=== PATIENT | male | born 1985 | race Caucasian/White ===

== ENCOUNTER 2017-05-09 16:41 | Outpatient (CLI) | payer OTHER ==
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
== END 2017-05-09 16:42 | disposition home or self-care (01) ==
LOC: DI 16:41
PROVIDERS: ATTEND Emergency Medicine
DX: T18.4XXA Foreign body in colon, initial encounter (principal)
CPT/HCPCS: 74022

== ENCOUNTER 2018-09-19 03:53 | Outpatient (CLI) | payer OTHER | END 2018-09-19 03:54 | disposition home or self-care (01) | LOC: LAB 03:53 | DX: Z01.89 Encounter for other specified special examinations (principal) | CPT/HCPCS: 36415 ==

== ENCOUNTER 2018-10-31 00:37 | Emergency (ER) | payer MEDICAID ==
[2018-10-31] MEDS ORDERED: fentaNYL 100 MCG/2 ML VIAL IVP STA (01:00)
--- NOTE | 2018-10-31 01:15 | XRAY Report ---
Reason: chest pain Procedure Date: 10/31/2018 Accession Number: [id number] / [id number] Procedure: XR - Chest 1 View X-Ray CPT Code: 67536 FULL RESULT: EXAM: CHEST RADIOGRAPHY EXAM DATE: 10/31/2018 01:07 AM. CLINICAL HISTORY: Chest pain. COMPARISON: ABDOMEN ACUTE 05/09/2017 4:44 PM. TECHNIQUE: 1 view. FINDINGS: Lungs/Pleura: No dense consolidation. No large effusion or pneumothorax. No pulmonary edema. Mediastinum: Heart and mediastinal contours are unremarkable. Other: None. IMPRESSION: No acute radiographic pulmonary abnormalities. [facility]
[2018-10-31] MEDS ORDERED: IOVERSOL 320 100 ML VIAL IVP ONE ×2 (01:22→01:51)
[2018-10-31 01:24] LABS: BASOPHILS # (AUTO) 0.1 10^3/uL (0.0-0.1); BASOPHILS % (AUTO) 0.6 %; EOSINOPHILS % (AUTO) 0.3 %; HGB - HEMOGLOBIN 13.5 g/dL (14.0-18.0); LYMPHOCYTES % (AUTO) 14.3 %; MEAN CORPUSCULAR HEMOGLOBIN 30.9 pg (27.0-31.0); MEAN CORPUSCULAR HGB CONC 34.5 g/dL (32.0-36.0); MEAN CORPUSCULAR VOLUME 89.6 fL (80.0-94.0); MEAN PLATELET VOLUME 6.4 fL (7.4-11.4); MONOCYTES # (AUTO) 1.2 10^3/uL (0.0-1.0); MONOCYTES % (AUTO) 8.1 %; NEUTROPHILS % (AUTO) 76.7 %; PLT - PLATELET COUNT 215 10^3/uL (130-450); RED BLOOD COUNT 4.38 10^6/uL (4.70-6.10); RED CELL DISTRIBUTION WIDTH 12.1 % (12.0-15.0); WHITE BLOOD COUNT 14.3 x10^3/uL (4.8-10.8)
[2018-10-31 01:32] LABS: CREATININE 1.1 mg/dL (0.6-1.2)
[2018-10-31] MEDS ORDERED: POTASSIUM CHLORIDE 20 MEQ TABLET PO STA (01:36)
[2018-10-31] MEDS ORDERED: TETANUS/DIPHTHERIA/PERTUSSIS 0.5 ML SYRINGE IM ONE (01:53)
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
[2018-10-31] MEDS ORDERED: BUPIVACAINE 0.5%-EPI 1:200000 PF 10 ML VIAL SUBQ STA (02:32)
[2018-10-31] MEDS ORDERED: BACITRACIN OINT TOP STA (04:26)
[2018-10-31 04:27] VITALS: BP 126/85
[2018-10-31] MEDS ORDERED: SODIUM CHLORIDE 0.9% EPI SCH (09:00)
[2018-10-31] MEDS ORDERED: BUPIVACAINE 0.5% EPI SCH (09:00)
== END 2018-10-31 04:35 | disposition home or self-care (01) ==
LOC: ED 00:37
DX: S41.111A Laceration without foreign body of right upper arm, initial encounter (principal); S30.811A Abrasion of abdominal wall, initial encounter; S20.312A Abrasion of left front wall of thorax, initial encounter; S70.311A Abrasion, right thigh, initial encounter; S80.811A Abrasion, right lower leg, initial encounter; V86.59XA Driver of other special all-terrain or other off-road motor vehicle injured in nontraffic accident, initial encounter; Y93.I9 Activity, other involving external motion; Y92.008 Other place in unspecified non-institutional (private) residence as the place of occurrence of the external cause; Z23 Encounter for immunization; F17.200 Nicotine dependence, unspecified, uncomplicated
CPT/HCPCS: 13121; 36415; 71045; 71260; 74177; 80048; 83690; 84484; 85025; 90471; 90715; 93005; 96374; 99283; 99285; A9270; Q9967